=== PATIENT | male | born 1940 ===

== ENCOUNTER 2019-09-08 15:55 | Emergency (ER) | payer MEDICARE ==
[~2019-09-08] VITALS: Ht 180.3 cm; Wt 102.5 kg
[~2019-09-08 15:55] MED LIST: CAND16TA25 PO; FERR325T14 PO; GARL2000 PO; GEMF600T8 PO; GLYB3TAB3 PO; HYDR-3164 PO; INDA1.25 PO; LORA0.5T PO; MULT-18 PO; OMEP20CA10 PO; OXYB5TAB10 PO; SITA100T PO; TAMS0.4C2 PO; VERA240C2 PO; VERA240T PO; ZOLP10TA4 PO
[2019-09-08 16:00] VITALS: BP 173/84
[2019-09-08] MEDS ORDERED: GABAPENTIN 300 MG CAPSULE. PO STA (16:08)
[2019-09-08] MEDS ORDERED: CYCLOBENZAPRINE 10 MG TABLET. PO ONE (16:15)
[2019-09-08] MEDS ORDERED: ONDANSETRON ODT 4 MG TAB.RAPDIS. PO ONE (16:15)
[2019-09-08] MEDS ORDERED: HYDROcodone/APAP 5/325MG 1 TAB TABLET PO ONE (16:15)
[2019-09-08] MEDS ORDERED: CYCL10TA2 PO (16:21)
[2019-09-08] MEDS ORDERED: HYDR-3164 PO (16:21)
--- NOTE | 2019-09-08 16:23 | PHYS DOC ---
Adult General Chief Complaint Chief Complaint: BACK PAIN - NO INJURY HPI HPI Patient is a 79 year old male patient presenting to the ED today complaining of mild right low back pain radiating to the right lower extremity, symptoms began on Monday, he states symptoms are worse when he is changing position from sitting to standing. He states symptoms are intermittent and sometimes he doesn't have the pain. He states most of the time the symptoms get relieved when he sits in certain positions. He states he has had similar pain before and has taken hydrocodone without relief. Denies any chest pain, shortness of breath, abdominal pain. Review of Systems Review of Systems Constitutional: Denies fever or chills [] Eyes: Denies change in visual acuity, redness, or eye pain [] HENT: Denies nasal congestion or sore throat [] Respiratory: Denies cough or shortness of breath [] Cardiovascular: No additional information not addressed in HPI [] GI: Denies abdominal pain, nausea, vomiting, bloody stools or diarrhea [] : Denies dysuria or hematuria [] Musculoskeletal: Reports right low back pain radiating to the right lower extremity Integument: Denies rash or skin lesions [] Neurologic: Denies headache, focal weakness or sensory changes [] All other systems were reviewed and found to be within normal limits, except as documented in this note. Current Medications Current Medications Current Medications Medications (Trade) Dose Ordered Sig/Manuel Start Time Stop Time Status Last Admin Dose Admin Acetaminophen/ Hydrocodone Bitart (Lortab 5/325) 1 tab 1X ONCE 09/08/19 16:15 09/08/19 16:16 Cyclobenzaprine HCl (Flexeril) 10 mg 1X ONCE 09/08/19 16:15 09/08/19 16:16 Gabapentin (Neurontin) 300 mg 1X STAT 09/08/19 16:08 09/08/19 16:09 UNV Ondansetron HCl (Zofran Odt) 4 mg 1X ONCE 09/08/19 16:15 09/08/19 16:16 Allergies Allergies Allergies Coded Allergies Type Severity Reaction Last Updated Verified No Known Drug Allergies 01/27/14 No Physical Exam Physical Exam Constitutional: Well developed, well nourished, no acute distress, non-toxic appearance. [] HENT: Normocephalic, atraumatic, bilateral external ears normal, oropharynx moist, no oral exudates, nose normal. [] Eyes: PERRLA, EOMI, conjunctiva normal, no discharge. [] Neck: Normal range of motion, no tenderness, supple, no stridor. [] Cardiovascular:Heart rate regular rhythm, no murmur [] Lungs & Thorax: Bilateral breath sounds clear to auscultation [] Abdomen: Bowel sounds normal, soft, no tenderness, no masses, no pulsatile masses. [] Skin: Warm, dry, no erythema, no rash. [] Back: Tenderness on palpation of the right SI joint region, no midline lumbar spine tenderness, no CVA tenderness. Positive straight leg raise to the right. Extremities: No tenderness, no cyanosis, no clubbing, ROM intact, no edema. +2 bilateral inguinal pulses, +2 bilateral pedal pulses Neurologic: Alert and oriented X 3, normal motor function, normal sensory function, no focal deficits noted. [] Psychologic: Affect normal, judgement normal, mood normal. [] EKG EKG [] Radiology/Procedures Radiology/Procedures [] Course & Med Decision Making Course & Med Decision Making Pertinent Labs and Imaging studies reviewed. (See chart for details) This is a 79-year-old male patient presented to the ED today with right low back pain radiating to the right lower extremity, no known injury. Patient has had similar pain before. He has taken hydrocodone before with relief, patient has no cauda equina syndrome symptoms no mid or upper back pain. He was given prescription for hydrocodone. He will follow-up with his own doctor in the course of this week. Dragon Disclaimer Dragon Disclaimer This electronic medical record was generated, in whole or in part, using a voice recognition dictation system. Departure Departure Impression: Primary Impression: Back pain Additional Impression: Sciatica of right side Disposition: HOME, SELF-CARE Condition: STABLE Patient Instructions: Back Pain, Adult, Sciatica with Rehab-SportsMed Additional Instructions: You were evaluated in the emergency room for back pain with sciatica. Try to apply heat to your low back. Take the prescribed medications as ordered. Follow- up with your own doctor in the course of this week. Scripts Cyclobenzaprine Hcl (CYCLOBENZAPRINE HCL) 10 Mg Tablet 1 TAB PO TID, #30 TAB Prov: TEMI ABDI MALATHI 09/08/19 Problem Qualifiers Primary Impression: Back pain Back pain location: low back pain Chronicity: acute Back pain laterality: right Sciatica presence: with sciatica Sciatica laterality: sciatica of right side Qualified Codes: M54.41 - Lumbago with sciatica, right side TEMI ABDI APRN Sep 08, 2019 16:23
== END 2019-09-08 16:38 | disposition home or self-care (01) ==
LOC: ER 15:55
DX: M54.41 Lumbago with sciatica, right side (principal)
CPT/HCPCS: 99284; Q0162